=== PATIENT | female | born 1990 | race Caucasian/White ===

== ENCOUNTER → 2016-02-23 | Outpatient (CLI) | payer OTHER ==
[~2016-02-23] MED LIST: ANUS2.5C2 TOP; DOCU10CA PO; JUICLIQ5 PO; MOTR200T40 PO; PRENTAB9 PO; TYLE325T5 PO
[2016-02-23 13:22] LABS: MEAN CORPUSCULAR HEMOGLOBIN 30.8 pg (27.0-33.0); MEAN CORPUSCULAR HGB CONC 32.9 g/dl (32.0-36.5); MEAN CORPUSCULAR VOLUME 93.8 fl (80.0-96.0); RED CELL DISTRIBUTION WIDTH 12.4 % (11.5-14.5)
== END | disposition home or self-care (01) ==
LOC: M SMT 08:17
PROVIDERS: ATTEND Advanced Practice Midwife
DX: Z34.82 Encounter for supervision of other normal pregnancy, second trimester (principal)

== ENCOUNTER 2016-02-24 15:12 | Outpatient (CLI) | payer OTHER ==
[~2016-02-24] VITALS: Ht 167.6 cm; Wt 64.0 kg
[~2016-02-24 15:12] MED LIST changes: -JUICLIQ5 PO
[2016-02-24 15:24] VITALS: BP 128/76
[2016-02-24] MEDS ORDERED: JUICLIQ5 PO (15:29)
== END 2016-02-24 16:32 | disposition home or self-care (01) ==
LOC: M LDO 15:12
PROVIDERS: ATTEND Advanced Practice Midwife
DX: O26.892 Other specified pregnancy related conditions, second trimester (principal); Z04.1 Encounter for examination and observation following transport accident; V48.5XXA Car driver injured in noncollision transport accident in traffic accident, initial encounter; Y92.410 Unspecified street and highway as the place of occurrence of the external cause; Y93.89 Activity, other specified; Y99.8 Other external cause status; Z3A.26 26 weeks gestation of pregnancy

== ENCOUNTER → 2016-05-01 | Outpatient (REF) | payer OTHER ==
[~2016-05-01] MED LIST changes: +JUICLIQ5 PO; -MOTR200T40 PO; +MOTR200T44 PO
== END ==
LOC: M LAB REF 16:52
PROVIDERS: ATTEND Advanced Practice Midwife
DX: Z34.83 Encounter for supervision of other normal pregnancy, third trimester (principal)

== ENCOUNTER 2016-05-23 11:10 | Inpatient (IN) | payer OTHER ==
[2016-05-23] VITALS (8 sets, daily range): BP systolic 122–144; BP diastolic 67–90
[~2016-05-23] VITALS: Ht 167.6 cm; Wt 70.0 kg
[2016-05-23] MEDS ORDERED: RHOGAM 300 MCG (1500 IU) INJ (J2790) IM SCH (13:15)
[2016-05-23] MEDS ORDERED: DOCUSATE SODIUM 100 MG CAP PO PRN (13:15)
[2016-05-23] MEDS ORDERED: MEASLES,MUMPS,RUBELLA VACCINE INJ (MMR-II) (90707) SC SCH (13:15)
[2016-05-23] MEDS ORDERED: ANUSOL HC CREAM 30GM TOP PRN (13:15)
[2016-05-23] MEDS ORDERED: METHYLERGONOVINE MALEATE 0.2 MG TAB PO PRN (13:15)
--- NOTE | 2016-05-23 13:36 | DN ---
DATE: 05/23/2016 Kalani is a 25-year-old, 4, para 3-0-1-3 now, who was admitted to labor and delivery in active labor. She progressed through her labor physiologically. She had assisted rupture of membranes for a small amount of clear odorless fluid at 1130. She progressed to full dilation at 1217. She pushed to a normal spontaneous vaginal delivery of a live male in direct occiput posterior (OP) position. There was no nuchal cord. The shoulders delivered with ease and the corpus immediately followed. The was placed on the maternal abdomen crying and active. Mouth and nares were bulb suctioned. The cord was clamped times two and cut by the father of the baby. A spontaneous expulsion of an intact placenta with a three-vessel cord by Ellison mechanism was at 1250. Uterine hemostasis was achieved with uterine fundal massage and Pitocin 10 units IM. Estimated blood loss 350 mL. Perineum and vagina were inspected and noted to have a perineal skin laceration. The laceration was repaired with #3-0 Rapide after infiltration of lidocaine 1%. male, 8 and 9, weight is pending at this time, as well as, the name as the family is undecided at this moment. Mom is going to breastfeed her son. At the close of delivery, lap counts, needle counts and instrument counts were correct and verified.
--- NOTE | 2016-05-23 13:37 | HPE ---
DATE OF ADMISSION: 05/23/2016 Kalani is a 25-year-old 4, para 2-0-1-2 at 38-6/7 weeks gestation with an estimated date of confinement (EDC) of 05/31/2016 based on last period and confirmed by 10-week ultrasound. She presents to labor and delivery today with a report of onset of uncomfortable contractions that started at approximately 02:30 and have continued to progressively become more uncomfortable and closer together. She denies leakage of fluid. She has had some bloody show and the fetus has been active. OBSTETRICAL HISTORY: care was initiated at [facility] in the first trimester. course has been uncomplicated. OBSTETRICAL HISTORY: In 2010 she had a spontaneous miscarriage. November 2011 at 39 weeks gestation she had a spontaneous vaginal delivery of a 7 pounds 4 ounces male. November 2013 at 39 weeks gestation she had a spontaneous vaginal delivery of a 6 pounds 9 ounces female. OBSTETRICAL LABORATORIES: Blood type is AB positive, antibody screen negative. Pap was normal. Rubella immune, VDRL nonreactive. Urine culture no growth. Hepatitis B surface antigen negative, HIV negative. Hepatitis C antibody nonreactive. Gonorrhea and chlamydia were negative. She did decline all genetic serum screening markers. Gestational diabetic screening negative, and Group B streptococcus (GBS) is negative. PAST MEDICAL HISTORY: Childhood varicella. SURGERIES: None. FAMILY HISTORY: Hypertension. SOCIAL HISTORY: The patient is . The is at bedside and supportive through her labor. She is a nonsmoker. Denies alcohol and drug use. No history of any sexually transmitted infections and denies history of abuse -- physical, sexual and emotional. ALLERGIES: NO KNOWN DRUG ALLERGIES. CURRENT MEDICATIONS: Include vitamins OBJECTIVE: Upon her arrival at 11:30 a.m., temperature 98.9, pulse 115, respirations 20, blood pressure 137/90. She is tense and deep breathing with her contractions. heart rate at 11:30 was 120 with moderate variability, positive accelerations, no decelerations observed. She is keny every 3-4 minutes. Sterile vaginal exam: Anterior lip, 100 percent effaced, zero station, intact membranes. ABDOMEN: Gravid, cephalic presentation. Estimated weight 6-1/2 to 7 pounds. ASSESSMENT: Intrauterine at 38-6/7 weeks. rate category 1. Active labor. PLAN: Admit the patient to labor and delivery. Out of bed ad rossana. Regular diet. Saline lock. Labs as ordered. I do anticipate continued progress and a spontaneous vaginal delivery. The patient does desire to cope with her labor physiologically.
[2016-05-23] MEDS ORDERED: OXYTOCIN INJ 10 UNITS/ML VIAL (J2590) IM ONE (14:00)
[2016-05-23] MEDS ORDERED: LIDOCAINE 1% MDV INJ 50 ML VIAL INFIL ONE (14:00)
[2016-05-23] MEDS: IBUPROFEN 800 MG TAB PO PRN (16:05)
[2016-05-23] MEDS: DIBUCAINE 1% OINTMENT 30GM TOP PRN (21:49)
[2016-05-23] MEDS: ACETAMINOPHEN 500 MG TAB PO PRN (21:50)
[2016-05-24] MEDS: IBUPROFEN 800 MG TAB PO PRN ×3 (04:32→21:05)
[2016-05-24 06:03] VITALS: BP 139/81
[2016-05-24] MEDS ORDERED: ADACEL/BOOSTRIX VACCINE (DIPHTH/PERTUSS/ACELL/TETANUS)0.5ML SYR (90715) IM ONE (09:00)
[2016-05-24] MEDS: PRENATAL VITAMIN TAB PO SCH (09:38)
[2016-05-24 09:45] VITALS: BP 139/81
[2016-05-24] MEDS: ACETAMINOPHEN 500 MG TAB PO PRN (09:53)
[2016-05-24 18:00] VITALS: BP 127/77
[2016-05-25 05:42] VITALS: BP 130/77
[2016-05-25] MEDS: IBUPROFEN 800 MG TAB PO PRN (07:56)
[2016-05-25] MEDS: DIBUCAINE 1% OINTMENT 30GM TOP PRN (07:56)
[2016-05-25] MEDS: PRENATAL VITAMIN TAB PO SCH (09:29)
[2016-05-25] MEDS ORDERED: ACET50TA PO (09:55)
[2016-05-25] MEDS ORDERED: IBUP-1114 PO (09:56)
== END 2016-05-25 11:10 | disposition home or self-care (01) | DRG 775 ==
LOC: M LDO 11:10 → M LDI 11:11 → M OBS 15:44
PROVIDERS: ADMIT Advanced Practice Midwife; ATTEND Advanced Practice Midwife
PROC: 10E0XZZ Delivery of Products of Conception, External Approach (ICD-10-PCS; principal; 2016-05-23)
PROC: 10907ZC Drainage of Amniotic Fluid, Therapeutic from Products of Conception, Via Natural or Artificial Opening (ICD-10-PCS; 2016-05-23)
PROC: 0HQ9XZZ Repair Perineum Skin, External Approach (ICD-10-PCS; 2016-05-23)
DX: O70.0 First degree perineal laceration during delivery (principal); Z3A.38 38 weeks gestation of pregnancy; Z37.0 Single live birth

== ENCOUNTER → 2017-07-20 | Outpatient (CLI) | payer OTHER ==
[2017-07-20 10:01] LABS: BASO % 0.5 % (0.0-1.0); HEMATOCRIT 38.3 % (36.0-47.0); HEMOGLOBIN 12.4 g/dl (12.0-15.5); IMMATURE GRANULOCYTE % 0.2 % (0-3.0); LYMPH # 2.4 10^3/uL (1.5-6.5); LYMPH % 57.3 % (24.0-44.0); MEAN CORPUSCULAR HEMOGLOBIN 29.2 pg (27.0-33.0); MEAN CORPUSCULAR HGB CONC 32.4 g/dl (32.0-36.5); MEAN CORPUSCULAR VOLUME 90.3 fl (80.0-96.0); MONO # 0.4 10^3/uL (0.0-0.8); MONO % 9.8 % (0.0-5.0); NEUTROPHILS # 1.3 10^3/uL (1.8-7.7); NEUTROPHILS % 31.2 % (36.0-66.0); PLATELET COUNT, AUTOMATED 228 10^3/uL (150-450); RED BLOOD COUNT 4.24 10^6/uL (4.00-5.40); RED CELL DISTRIBUTION WIDTH 12.1 % (11.5-14.5); WHITE BLOOD COUNT 4.1 10^3/uL (4.0-10.0)
[2017-07-20 11:17] LABS: ALBUMIN 4.2 GM/DL (3.2-5.2); ALBUMIN/GLOBULIN RATIO 1.24 (1.00-1.93); ALKALINE PHOSPHATASE 67 U/L (45-117); ALT/SGPT 20 U/L (12-78); AMYLASE 41 U/L (25-115); ANION GAP 6 MEQ/L (8-16); AST/SGOT 9 U/L (7-37); BILIRUBIN,TOTAL 0.2 MG/DL (0.2-1.0); BLOOD UREA NITROGEN 13 MG/DL (7-18); CALCIUM LEVEL 8.9 MG/DL (8.5-10.1); CARBON DIOXIDE LEVEL 27 MEQ/L (21-32); CHLORIDE LEVEL 106 MEQ/L (98-107); CREATININE FOR GFR 0.64 MG/DL (0.55-1.30); GLOMERULAR FILTRATION RATE > 60.0 (>60); GLUCOSE, FASTING 89 MG/DL (70-100); LIPASE 127 U/L (73-393); POTASSIUM SERUM 3.9 MEQ/L (3.5-5.1); SODIUM LEVEL 139 MEQ/L (136-145); TOTAL PROTEIN 7.6 GM/DL (6.4-8.2)
== END ==
LOC: M LAB 09:00
DX: R10.13 Epigastric pain (principal)

== ENCOUNTER → 2017-08-01 | Outpatient (CLI) | payer OTHER ==
[~2017-08-01] MED LIST changes: -ANUS2.5C2 TOP; -DOCU10CA PO; +E-Z-GAS II EFFERVESCENT PACKET (SODIUM BICARB./CITRIC ACID/SIMETHICONE) As Ordered; +E-Z-HD 98% w/w 340GM SUSP BTL As Ordered; +E-Z-PAQUE 96% w/w SUSP 176GM BTL As Ordered; -JUICLIQ5 PO; -MOTR200T44 PO; -PRENTAB9 PO; -TYLE325T5 PO
== END ==
LOC: M RAD 10:16
DX: R10.13 Epigastric pain (principal); R11.0 Nausea; R19.7 Diarrhea, unspecified
CPT/HCPCS: 74245

== ENCOUNTER → 2018-02-01 | Outpatient (REF) | payer OTHER ==
[~2018-02-01] MED LIST changes: +ANUS2.5C2 TOP; +DOCU10CA PO; -E-Z-GAS II EFFERVESCENT PACKET (SODIUM BICARB./CITRIC ACID/SIMETHICONE) As Ordered; -E-Z-HD 98% w/w 340GM SUSP BTL As Ordered; -E-Z-PAQUE 96% w/w SUSP 176GM BTL As Ordered; +IBUP-1114 PO; +JUICLIQ5 PO; +MAPA500T17 PO; +MOTR200T44 PO; +PRENTAB9 PO; +TYLE325T5 PO
== END ==
LOC: M LAB REF 13:27
PROVIDERS: ATTEND Advanced Practice Midwife
DX: Z12.4 Encounter for screening for malignant neoplasm of cervix (principal)

== ENCOUNTER 2018-11-18 16:06 | Emergency (ER) | payer OTHER ==
[~2018-11-18] VITALS: Ht 167.6 cm; Wt 60.7 kg
[2018-11-18 16:06] VITALS: BP 157/92
[~2018-11-18 16:06] MED LIST changes: -melatonin
[2018-11-18] MEDS ORDERED: melatonin (16:11)
[2018-11-18] MEDS ORDERED: ONDANSETRON 4MG/2ML VIAL (J2405) IV ONE (18:15)
[2018-11-18] MEDS ORDERED: NS 1,000 ML IV ONE (18:15)
[2018-11-18 18:39] LABS: BASO % 0.4 % (0.0-1.0); HEMATOCRIT 44.1 % (36.0-47.0); LYMPH % 26.2 % (24.0-44.0); MEAN CORPUSCULAR HEMOGLOBIN 29.5 pg (27.0-33.0); MEAN CORPUSCULAR HGB CONC 31.7 g/dl (32.0-36.5); MEAN CORPUSCULAR VOLUME 92.8 fl (80.0-96.0); MONO # 0.3 10^3/uL (0.0-0.8); MONO % 4.3 % (0.0-5.0); NEUTROPHILS # 5.3 10^3/uL (1.5-8.5); NEUTROPHILS % 68.6 % (36.0-66.0); PLATELET COUNT, AUTOMATED 263 10^3/uL (150-450); RED BLOOD COUNT 4.75 10^6/uL (4.00-5.40); WHITE BLOOD COUNT 7.7 10^3/uL (4.0-10.0)
[2018-11-18 19:14] LABS: ALBUMIN 4.8 GM/DL (3.2-5.2); ALT/SGPT 57 U/L (12-78); BILIRUBIN,DIRECT 0.1 MG/DL (0.0-0.2); BILIRUBIN,TOTAL 0.3 MG/DL (0.2-1.0); BLOOD UREA NITROGEN 12 MG/DL (7-18); CALCIUM LEVEL 9.5 MG/DL (8.5-10.1); CARBON DIOXIDE LEVEL 26 MEQ/L (21-32); CHLORIDE LEVEL 103 MEQ/L (98-107); CREATININE FOR GFR 0.74 MG/DL (0.55-1.30); GLOMERULAR FILTRATION RATE > 60.0 (>60); GLUCOSE, FASTING 89 MG/DL (70-100); LIPASE 92 U/L (73-393); MAGNESIUM LEVEL 2.4 MG/DL (1.8-2.4); POTASSIUM SERUM 3.6 MEQ/L (3.5-5.1); SODIUM LEVEL 137 MEQ/L (136-145); TOTAL PROTEIN 8.8 GM/DL (6.4-8.2)
--- NOTE | 2018-11-18 19:24 | REPVR ---
PROCEDURE INFORMATION: Exam: CT Head without contrast Exam date and time: 11/18/2018 7:10 PM Clinical history: 28 years old, female; Pain; Headache; Additional info: New onset headache/neck pain TECHNIQUE: Imaging protocol: Computed tomography of the head without contrast. Radiation optimization: All CT scans at this facility use at least one of these dose optimization techniques: automated exposure control; mA and/or kV adjustment per patient size (includes targeted exams where dose is matched to clinical indication); or iterative reconstruction. COMPARISON: No relevant prior studies available. FINDINGS: Brain: Normal. No hemorrhage. Unremarkable white matter. No mass effect. Ventricles: Normal. No ventriculomegaly. Bones/joints: Unremarkable. No acute fracture. Sinuses: Visualized sinuses are unremarkable. No fluid levels. Mastoid air cells: Visualized mastoid air cells are well aerated. Soft tissues: Unremarkable. IMPRESSION: No acute intracranial abnormality. Electronically signed by: Cuong Arnett On 11/18/2018 19:24:30 PM
--- NOTE | 2018-11-18 19:25 | REPVR ---
PROCEDURE INFORMATION: Exam: CT Cervical Spine Without Contrast Exam date and time: 11/18/2018 7:10 PM Clinical history: 28 years old, female; Neck pain; Additional info: New onset headache/neck pain TECHNIQUE: Imaging protocol: Computed tomography images of the cervical spine without contrast. Radiation optimization: All CT scans at this facility use at least one of these dose optimization techniques: automated exposure control; mA and/or kV adjustment per patient size (includes targeted exams where dose is matched to clinical indication); or iterative reconstruction. COMPARISON: No relevant prior studies available. FINDINGS: Vertebrae: No acute fracture. Normal alignment. Discs/Spinal canal/Neural foramina: No spinal stenosis. No neural foraminal narrowing. Soft tissues: Unremarkable. Lungs: Lung apices are normal. IMPRESSION: No acute findings. Electronically signed by: Cuong Arnett On 11/18/2018 19:25:50 PM
[2018-11-18] MEDS ORDERED: ACETAMINOPHEN 325 MG TAB PO ONE (19:45)
== END 2018-11-18 21:24 | disposition home or self-care (01) ==
LOC: M ED 16:06
DX: R51 Headache (principal)
CPT/HCPCS: 70450; 72125; 80048; 80076; 81001; 83690; 83735; 84702; 85025; 87880; 96361; 96374; 99284; J2405

== ENCOUNTER → 2018-11-18 | Outpatient (CLI) | payer OTHER ==
[~2018-11-18] MED LIST changes: -MAPA500T17 PO; +MAPA500T2 PO; +melatonin
[2018-11-18 20:36] LABS: BASO % 0.5 % (0.0-1.0); EOS % 0.3 % (0.0-3.0); HEMATOCRIT 42.1 % (36.0-47.0); HEMOGLOBIN 13.5 g/dl (12.0-15.5); LYMPH % 26.8 % (24.0-44.0); MEAN CORPUSCULAR HEMOGLOBIN 30.1 pg (27.0-33.0); MEAN CORPUSCULAR HGB CONC 32.1 g/dl (32.0-36.5); MEAN CORPUSCULAR VOLUME 93.8 fl (80.0-96.0); MONO # 0.3 10^3/uL (0.0-0.8); MONO % 4.5 % (0.0-5.0); NEUTROPHILS % 67.6 % (36.0-66.0); PLATELET COUNT, AUTOMATED 261 10^3/uL (150-450); RED BLOOD COUNT 4.49 10^6/uL (4.00-5.40); WHITE BLOOD COUNT 7.4 10^3/uL (4.0-10.0)
[2018-11-18 20:43] LABS: ALBUMIN 4.5 GM/DL (3.2-5.2); ALT/SGPT 55 U/L (12-78); BILIRUBIN,TOTAL 0.3 MG/DL (0.2-1.0); BLOOD UREA NITROGEN 12 MG/DL (7-18); C REACTIVE PROTEIN QUANTITATIV 0.57 MG/DL (0.00-0.30); CALCIUM LEVEL 9.2 MG/DL (8.5-10.1); CARBON DIOXIDE LEVEL 28 MEQ/L (21-32); CHLORIDE LEVEL 105 MEQ/L (98-107); GLOMERULAR FILTRATION RATE > 60.0 (>60); GLUCOSE, FASTING 92 MG/DL (70-100); POTASSIUM SERUM 3.9 MEQ/L (3.5-5.1); SODIUM LEVEL 140 MEQ/L (136-145); TOTAL PROTEIN 7.8 GM/DL (6.4-8.2)
[2018-11-18 21:12] LABS: ERYTHROCYTE SEDIMENTATION RATE 11 mm/hr (0-20)
[2018-11-22 14:22] LABS: Lyme Disease IgG Ab 18 kDa Ban Present (.); Lyme Disease IgG Ab 23 kDa Ban Absent (.); Lyme Disease IgG Ab 28 kDa Ban Absent (.); Lyme Disease IgG Ab 30 kDa Ban Absent (.); Lyme Disease IgG Ab 39 kDa Ban Absent (.); Lyme Disease IgG Ab 41 kDa Ban Present (.); Lyme Disease IgG Ab 45 kDa Ban Absent (.); Lyme Disease IgG Ab 58 kDa Ban Absent (.); Lyme Disease IgG Ab 66 kDa Ban Absent (.); Lyme Disease IgG Ab 93 kDa Ban Absent (.); Lyme Disease IgG West Blot Int Negative (.); Lyme Disease IgG/IgM Antibodie <0.91 ISR (0.00-0.90); Lyme Disease IgM Ab 23 kDa Ban Absent (.); Lyme Disease IgM Ab 39 kDa Ban Absent (.); Lyme Disease IgM Ab 41 kDa Ban Absent (.); Lyme Disease IgM West Blot Int Negative (.)
== END ==
LOC: M WUC 15:27
PROVIDERS: ATTEND Physician Assistant
DX: R51 Headache (principal)

== ENCOUNTER 2020-04-21 09:26 | Emergency (ER) | payer OTHER ==
[~2020-04-21] VITALS: Ht 167.6 cm; Wt 55.3 kg
[~2020-04-21 09:26] MED LIST changes: +melatonin
[2020-04-21] MEDS ORDERED: FIOR1CAP PO (09:39)
[2020-04-21] MEDS ORDERED: FLUO10CA16 (09:39)
--- NOTE | 2020-04-21 11:28 | REP ---
INDICATION: left elbow injury with fall in parking lot COMPARISON: None. TECHNIQUE: AP, lateral, bilateral oblique views of the left elbow. FINDINGS: No acute fracture or dislocation is appreciated. Joint spaces and surrounding soft tissues appear normal. Lateral view demonstrates normal positioning to the anterior and posterior fat pads without evidence for effusion/hemarthrosis. No subcutaneous emphysema or foreign body identified. IMPRESSION: No acute fracture or dislocation. <Electronically signed by Dawson Araujo > 04/21/20 [id number]
[2020-04-21 12:49] VITALS: BP 138/74
== END 2020-04-21 12:53 | disposition home or self-care (01) ==
LOC: M ED 09:26
DX: S50.02XA Contusion of left elbow, initial encounter (principal); S16.1XXA Strain of muscle, fascia and tendon at neck level, initial encounter; W00.0XXA Fall on same level due to ice and snow, initial encounter; Y92.481 Parking lot as the place of occurrence of the external cause; G43.909 Migraine, unspecified, not intractable, without status migrainosus; F33.9 Major depressive disorder, recurrent, unspecified; R01.1 Cardiac murmur, unspecified; Z79.899 Other long term (current) drug therapy

== ENCOUNTER 2020-08-07 13:58 | Emergency (ER) | payer OTHER ==
[~2020-08-07] VITALS: Ht 167.6 cm; Wt 53.6 kg
[~2020-08-07 13:58] MED LIST changes: +FIOR1CAP PO; +FLUO10CA16
[2020-08-07 15:06] LABS: HEMOGLOBIN 13.6 g/dl (12.0-15.5); MEAN CORPUSCULAR HEMOGLOBIN 29.6 pg (27.0-33.0); MEAN CORPUSCULAR HGB CONC 32.4 g/dl (32.0-36.5); MEAN CORPUSCULAR VOLUME 91.5 fl (80.0-96.0); PLATELET COUNT, AUTOMATED 206 10^3/uL (150-450); RED BLOOD COUNT 4.59 10^6/uL (4.00-5.40); WHITE BLOOD COUNT 2.9 10^3/uL (4.0-10.0)
[2020-08-07 15:35] LABS: ALBUMIN 3.9 GM/DL (3.2-5.2); ALT/SGPT 23 U/L (12-78); BILIRUBIN,DIRECT 0.1 MG/DL (0.0-0.2); BILIRUBIN,TOTAL 0.4 MG/DL (0.2-1.0); LIPASE 141 U/L (73-393); TOTAL PROTEIN 7.5 GM/DL (6.4-8.2)
[2020-08-07 16:00] LABS: ATYPICAL LYMPH 12 % (0-5); LYMPHOCYTES 34 % (16-44); MONOCYTES 3 % (0-5); NEUTROPHILS 51 % (28-66)
[2020-08-07 16:01] LABS: PLATELET ESTIMATE NORMAL (NORMAL)
[2020-08-07] MEDS ORDERED: KETOROLAC 30 MG/ML 1ML VIAL IV ONE (16:30)
[2020-08-07] MEDS ORDERED: ONDANSETRON 4MG/2ML VIAL IV ONE (16:30)
[2020-08-07] MEDS ORDERED: ISOVUE-370 76% 100ML VIAL As Ordered ONE (16:31)
[2020-08-07 16:46] LABS: MONO SCRN NEGATIVE (NEGATIVE)
--- NOTE | 2020-08-07 17:02 | REP ---
INDICATION: upper abd pain. COMPARISON: None. TECHNIQUE: Standard helical technique after the intravenous administration of 100 cc Isovue 370. No oral bowel preparatory contrast was administered prior to the exam. FINDINGS: The lung bases are clear. The liver, gallbladder, spleen, pancreas, adrenal glands, and kidneys are within normal limits. The abdominal aorta and para-aortic regions are within normal limits. There is no free air. There is a trace amount of free fluid in the pelvis likely physiologic. There is some sort of device in the vagina. There is no gross bowel abnormality. The osseous structures are within normal limits. IMPRESSION: There is some sort of intravaginal device the etiology is uncertain and needs to be correlated clinically. This does not have the appearance of a standard tampon. The examination is otherwise unremarkable. <Electronically signed by Figueroa Rg > 08/07/20 [id number]
[2020-08-07 18:05] VITALS: BP 121/63
[2020-08-07] MEDS ORDERED: ONDA4TAB6 PO (18:11)
--- NOTE | 2020-08-09 20:54 | ED PDOC ---
Post-Departure Follow-Up dr babin faxed formal report of ct abd/p for fu Elan Lerma MD Aug 09, 2020 20:54
== END 2020-08-07 18:29 | disposition home or self-care (01) ==
LOC: M ED 13:58
DX: K52.9 Noninfective gastroenteritis and colitis, unspecified (principal); F33.9 Major depressive disorder, recurrent, unspecified; G43.909 Migraine, unspecified, not intractable, without status migrainosus
CPT/HCPCS: 74177; 80047; 80076; 81001; 83690; 84702; 85025; 86308; 96374; 96375; 99284; J1885; J2405; Q9967

== ENCOUNTER 2021-12-14 09:54 | Outpatient (RCR) | payer OTHER ==
[~2021-12-14 09:54] MED LIST changes: -FLUO10CA16; +FLUO10CA18; +ONDA4TAB6 PO
== END 2021-12-19 23:59 | disposition home or self-care (01) ==
LOC: M PT 09:54
PROVIDERS: ATTEND Dentist
DX: M26.609 Unspecified temporomandibular joint disorder, unspecified side (principal)

== ENCOUNTER 2022-01-17 10:42 | Outpatient (RCR) | payer OTHER | END 2022-01-18 | LOC: M PT 10:42 | DX: M26.609 Unspecified temporomandibular joint disorder, unspecified side (principal) ==

== ENCOUNTER → 2022-02-28 | Outpatient (CLI) | payer OTHER ==
[2022-02-28 17:45] LABS: HEMATOCRIT 39.3 % (36.0-47.0); HEMOGLOBIN 12.5 g/dl (12.0-15.5); MEAN CORPUSCULAR HGB CONC 31.8 g/dl (32.0-36.5); MEAN CORPUSCULAR VOLUME 94.2 fl (80.0-96.0); PLATELET COUNT, AUTOMATED 262 10^3/uL (150-450); RED BLOOD COUNT 4.17 10^6/uL (4.00-5.40); WHITE BLOOD COUNT 5.2 10^3/uL (4.0-10.0)
[2022-02-28 18:09] LABS: THYROID STIMULATING HORMONE 1.773 uIU/ML (0.55-4.78)
[2022-02-28 18:11] LABS: ESTRADIOL 50.5 PG/ML
== END ==
LOC: M PLALAB 15:27
PROVIDERS: ATTEND Advanced Practice Midwife
DX: Z12.4 Encounter for screening for malignant neoplasm of cervix (principal); R53.83 Other fatigue; R87.615 Unsatisfactory cytologic smear of cervix

== ENCOUNTER → 2022-03-14 | Outpatient (CLI) | payer OTHER | LOC: M WHC 07:49 | PROVIDERS: ATTEND Advanced Practice Midwife | DX: N83.291 Other ovarian cyst, right side (principal); N83.02 Follicular cyst of left ovary; R10.2 Pelvic and perineal pain ==

== ENCOUNTER → 2022-05-16 | Outpatient (CLI) | payer OTHER | LOC: M WHC 08:21 | PROVIDERS: ATTEND Advanced Practice Midwife | DX: N83.201 Unspecified ovarian cyst, right side (principal) ==

== ENCOUNTER → 2022-06-12 | Outpatient (REF) | payer OTHER ==
[2022-06-12 17:02] LABS: GC DNA AMPLIFICATION NEGATIVE (NEGATIVE)
== END ==
LOC: M SFHCWAGY 15:05
PROVIDERS: ATTEND Advanced Practice Midwife
DX: Z11.3 Encounter for screening for infections with a predominantly sexual mode of transmission (principal)

== ENCOUNTER → 2022-10-12 | Outpatient (REF) | payer OTHER | LOC: M SFHCWAGY 16:49 | PROVIDERS: ATTEND Advanced Practice Midwife | DX: R30.0 Dysuria (principal) ==